=== PATIENT | male | born 1965 | race Caucasian/White ===

== ENCOUNTER → 2016-10-18 | Outpatient (CLI) | payer OTHER | END | disposition home or self-care (01) | LOC: CDC 09:46 | DX: R94.31 Abnormal electrocardiogram [ECG] [EKG] (principal); R00.0 Tachycardia, unspecified; S46.201A Unspecified injury of muscle, fascia and tendon of other parts of biceps, right arm, initial encounter; M25.521 Pain in right elbow | CPT/HCPCS: 93000 ==

== ENCOUNTER 2018-03-02 15:06 | Emergency (ER) | payer OTHER ==
[~2018-03-02] VITALS: Ht 180.3 cm; Wt 130.0 kg
[2018-03-02 18:23] LABS: HEMOGLOBIN 13.1 G/DL (12.5-16.6); MCH 28.9 PG (29.0-34.0); MCHC 34.5 G/DL (30.0-36.0); MCV 83.9 FL (86-99); PLATELET COUNT 222 K/uL (156-360); RBC DIS.WIDTH-CV 13.8 % (11.8-14.6); RBC DIS.WIDTH-SD 42.2 % (39-53); RED BLOOD COUNT 4.53 M/uL (4.00-5.50); WHITE BLOOD COUNT 8.4 K/uL (4.1-10.2)
[2018-03-02 18:35] LABS: CHLORIDE 100 mEq/L (99-109); POTASSIUM 4.2 mEq/L (3.7-5.4); SODIUM 133 mEq/L (136-147)
[2018-03-02 18:37] LABS: GLUCOSE 309 mg/dL (70-99)
[2018-03-02 18:41] LABS: GFR ESTIMATE (CALCULATED) > 59 mL/min/ (58.99-99999)
[2018-03-02 18:42] LABS: UREA NITROGEN (BUN) 28 mg/dL (9-23)
[2018-03-02] MEDS ORDERED: NORCO 5/3251 TABLET PO (19:39)
[2018-03-02] MEDS ORDERED: BACTRIM,SEPT1 TABLET PO (19:39)
[2018-03-02 20:23] VITALS: BP 152/99
== END 2018-03-02 20:24 | disposition home or self-care (01) ==
LOC: EME 15:06
PROVIDERS: Physician Assistant
PROC: 0H9AXZZ Drainage of Inguinal Skin, External Approach (ICD-10-PCS; principal; 2018-03-02)
DX: L02.214 Cutaneous abscess of groin (principal); E11.65 Type 2 diabetes mellitus with hyperglycemia; I10 Essential (primary) hypertension; Z87.891 Personal history of nicotine dependence
CPT/HCPCS: 80048; 83605; 85027; 99281; 99284; J3010